=== PATIENT | female | born 1955 | race Caucasian/White ===

== ENCOUNTER 2023-07-19 09:56 | Day surgery (SDC) | payer MEDICARE, BC ==
[2023-07-17 14:35] VITALS: BMI 29.6
[2023-07-19] MEDS ORDERED: Bupivacaine PF 0.5% 30 ML VIAL ONE ×2 (10:53→10:57)
[2023-07-19] MEDS ORDERED: PROPOFOL 20 ML ONE (11:38)
[2023-07-19] MEDS ORDERED: fentaNYL 50 mcg/mL 1 mL Vial ONE (11:38)
[2023-07-19] MEDS ORDERED: Lidocaine 2% PF 5 ML VIAL ONE (11:38)
[2023-07-19] MEDS ORDERED: CEFAZOLIN 2 GM VIAL ONE (11:44)
[2023-07-19] MEDS ORDERED: Ondansetron PF 4 MG/2 ML Vial ONE (12:11)
[2023-07-19] MEDS ORDERED: ePHEDrine Sulfate 50 MG/10 ML VIAL ONE (12:11)
[2023-07-19] MEDS ORDERED: Dexamethasone 4 mg/ml Vial ONE (12:11)
== END 2023-07-19 14:50 | disposition home or self-care (01) ==
LOC: CSHSDC 09:56
PROVIDERS: ATTEND Podiatrist Foot & Ankle Surgery
PROC: 0SGL04Z Fusion of Left Tarsometatarsal Joint with Internal Fixation Device, Open Approach (ICD-10-PCS; principal; 2023-07-19)
DX: M21.612 Bunion of left foot (principal); E78.00 Pure hypercholesterolemia, unspecified; M85.89 Other specified disorders of bone density and structure, multiple sites; Z90.710 Acquired absence of both cervix and uterus; Z79.899 Other long term (current) drug therapy
CPT/HCPCS: 28297; 73620; C1713 ×4; C1769; C1776 ×2; J3010; J1100; J2001; J2405; J2704; S0020